=== PATIENT | male | born 1955 | race Caucasian/White ===

== ENCOUNTER → 2023-11-12 13:56 | Outpatient (REF) | payer MEDICARE, OTHER, SELFPAY | LOC: RAD 13:56 | PROVIDERS: ATTENDING PHYSICIAN Internal Medicine Geriatric Medicine | DX: E78.2 Mixed hyperlipidemia (principal); I10 Essential (primary) hypertension; I25.10 Atherosclerotic heart disease of native coronary artery without angina pectoris | CPT/HCPCS: 76770; 93880 ==

== ENCOUNTER → 2023-12-04 13:10 | Outpatient (REF) | payer MEDICARE, OTHER, SELFPAY | LOC: HWRAD 13:10 | PROVIDERS: ATTENDING PHYSICIAN Nurse Practitioner Family | DX: R05.8 Other specified cough (principal) | CPT/HCPCS: 71046 ==

== ENCOUNTER → 2023-12-07 08:07 | Outpatient (REF) | payer MEDICARE, OTHER, SELFPAY | LOC: RAD 08:07 | PROVIDERS: ATTENDING PHYSICIAN Nurse Practitioner Family; FAMILY PHYSICIAN Internal Medicine Geriatric Medicine | DX: R13.10 Dysphagia, unspecified (principal) | CPT/HCPCS: 74230; 92611 ==

== ENCOUNTER → 2024-08-26 12:25 | Outpatient (REF) | payer MEDICARE, OTHER, SELFPAY | LOC: HWRAD 12:25 | PROVIDERS: ATTENDING PHYSICIAN Internal Medicine Geriatric Medicine | DX: M54.2 Cervicalgia (principal) | CPT/HCPCS: 72040 ==

== ENCOUNTER → 2025-07-03 07:58 | Outpatient (REF) | payer MEDICARE, OTHER, SELFPAY | LOC: MRI 3T 07:58 | PROVIDERS: ATTENDING PHYSICIAN Specialist; FAMILY PHYSICIAN Internal Medicine Geriatric Medicine | DX: R97.20 Elevated prostate specific antigen [PSA] (principal) | CPT/HCPCS: 72197; A9575 ==

== ENCOUNTER 2025-07-07 06:26 | Day surgery (SDC) | payer MEDICARE, OTHER, SELFPAY | END 2025-07-07 12:08 | disposition home or self-care (01) | LOC: GI 06:26 | PROVIDERS: ATTENDING PHYSICIAN Internal Medicine Gastroenterology; FAMILY PHYSICIAN Internal Medicine Geriatric Medicine | DX: Z12.11 Encounter for screening for malignant neoplasm of colon (principal); Z80.0 Family history of malignant neoplasm of digestive organs; K64.9 Unspecified hemorrhoids; K57.30 Diverticulosis of large intestine without perforation or abscess without bleeding; R13.10 Dysphagia, unspecified; K22.89 Other specified disease of esophagus; K44.9 Diaphragmatic hernia without obstruction or gangrene; K20.90 Esophagitis, unspecified without bleeding | CPT/HCPCS: 43239; G0121; 88305; 88312 ==

== ENCOUNTER 2025-07-31 06:33 | Day surgery (SDC) | payer MEDICARE, OTHER, SELFPAY ==
[2025-07-31] VITALS (13 sets, daily range): BP systolic 143–173; BP diastolic 92–106; BMI 25.8
[2025-07-31 07:22] LABS: Hematocrit 45.3 % (39.0-52.0); Hemoglobin 15.1 g/dL (13.0-18.0); Mean Corp Hgb Conc. 33.3 g/dL (33.0-37.0); Mean Corpuscular Volume 95.0 fL (80.0-94.0); Platelet Count 145 10^3/uL (130-400); Red Cell Dist. Width 11.8 % (11.5-14.5)
[2025-07-31] MEDS: NSS 266 ML IV (07:30)
[2025-07-31 07:38] LABS: Blood Urea Nitrogen 12 mg/dl (9-20); Calcium 9.8 mg/dl (8.4-10.2); Carbon Dioxide 28 mmol/L (22-30); Chloride 105 mmol/L (98-107); Glucose 85 mg/dl (70-99); Potassium 4.0 mmol/L (3.5-5.1); Sodium 140 mmol/L (135-145); eGFR > 60.00
[2025-07-31] MEDS: LOW STRENGTH ASPIRIN 81 MG PO (07:42)
[2025-07-31] MEDS: NSS 1000 IV (09:14)
--- NOTE | 2025-07-31 09:49 | ITS.CL.CATH ---
Hosiery Repairer - Catheterization
Cardiac Catheterization
Procedure Report:
LEFT HEART CATHETERIZATION
Date of Procedure: July 31, 2025
Referring: Dr. Louise Suarez
PROCEDURES:
1. Left heart catheterization with coronary and single-plane left ventriculography
INDICATION: This is a 70-year-old gentleman with multiple cardiovascular risk factors and remote stenting of the distal RCA to the crux of the vessel back in 2016. He has reported chest pressure with physical and emotional stressors. His
beta-betty has been titrated. He was also started on a long-acting nitrate which did provide some improvement in symptoms. He has noticed some degree of symptoms over the past 6 if not 12 months. He is stress study was notable for heavy
coronary artery calcification without significant coronary ischemia. He is now referred for coronary angiography
ACCESS: Right radial artery, 6 Maltese sheath
HEMODYNAMICS : (mmHg)
AO (s/d): 153/92, 120
LV (s/d): 153/9
LVEDP: 18
CORONARY FINDINGS
DOMINANCE: Right
LEFT MAIN: Normal
LEFT ANTERIOR DESCENDING: The LAD is heavily calcified with diffuse atherosclerosis. There is a 90% stenosis in the mid LAD between the 1st and 2nd diagonal branch and a 70% stenosis beyond the second diagonal branch. The second diagonal branch is
large and has a 60% mid stenosis. The LAD is very tortuous over its course.
CIRCUMFLEX: The circumflex is a small caliber nondominant vessel. OM1 is very small and occluded at its origin with a distal vessel filling via faint left to left collaterals. The mid circumflex beyond this very small OM1 has a 70% calcified
stenosis in the distal vessel bifurcates into 2 very small caliber terminal obtuse marginal branches
RIGHT CORONARY ARTERY: The right coronary artery is heavily calcified with diffuse a proximal 40% stenosis and diffuse eccentric calcific plaque throughout the mid RCA. The distal RCA stent is widely patent. The posterolateral branch has a 40% mid
stenosis and supplies a large vascular territory. The mid PDA has a 30% stenosis and is a moderate caliber vessel
VENTRICULOGRAPHY: Left ventriculography is performed in an GOMEZ projection. The digital single-plane left ventricular ejection fraction is visually estimated at 55% with mild anterolateral hypokinesis
SEDATION: 38 minutes of procedural sedation was utilized. An independent medical director occupational health was present to assist with and help manage the patient's level of consciousness and physiologic status.
RADIATION SUMMARY: Fluoro Time (min): 3.4, Dose (mGy): 376, DAP (Gy.cm2) : 26.1
Closure Device: TR band
CONCLUSIONS
1. Diffuse calcific coronary disease is noted in the LAD with significant atherosclerotic plaque including 90% stenosis beyond the first diagonal branch and 70% stenosis beyond the second diagonal branch. The second diagonal is a large and
supplies a large territory. The diagonal has a 60% mid stenosis. There is diffuse calcific plaque and large dominant RCA in the midportion of the artery and coronary disease involving 2 small terminal obtuse marginal branches.
2. Preserved LV systolic function with mild anterolateral hypokinesis
RECOMMENDATIONS
1. Multivessel coronary disease with heavily calcified coronary arteries as described above. I will refer for CT surgical evaluation
Copy to: Dr. Louise Suarez
[2025-07-31] MEDS: NORVASC 2.5 MG PO (11:38)
== END 2025-07-31 11:55 | disposition home or self-care (01) ==
LOC: CATH 06:33
PROVIDERS: ATTENDING PHYSICIAN Internal Medicine Interventional Cardiology; FAMILY PHYSICIAN Internal Medicine Geriatric Medicine; OTHER PHYSICIAN Internal Medicine Cardiovascular Disease
DX: I25.118 Atherosclerotic heart disease of native coronary artery with other forms of angina pectoris (principal); I25.84 Coronary atherosclerosis due to calcified coronary lesion; E78.2 Mixed hyperlipidemia; Z95.5 Presence of coronary angioplasty implant and graft; I77.9 Disorder of arteries and arterioles, unspecified; Z79.82 Long term (current) use of aspirin; Z79.899 Other long term (current) drug therapy; F41.9 Anxiety disorder, unspecified; G61.81 Chronic inflammatory demyelinating polyneuritis; I11.0 Hypertensive heart disease with heart failure; I50.9 Heart failure, unspecified
CPT/HCPCS: 99152; 99153; 80048; 85027; 93458; C1769; Q9967

== ENCOUNTER → 2025-08-02 14:02 | Outpatient (REF) | payer MEDICARE, OTHER, SELFPAY | LOC: RCS 14:02 | PROVIDERS: ATTENDING PHYSICIAN Thoracic Surgery (Cardiothoracic Vascular Surgery); FAMILY PHYSICIAN Internal Medicine Geriatric Medicine | DX: I25.10 Atherosclerotic heart disease of native coronary artery without angina pectoris (principal) | CPT/HCPCS: 93306 ==

== ENCOUNTER 2025-08-09 05:00 | Inpatient (IN) | payer MEDICARE, OTHER, SELFPAY ==
[2025-08-08 10:03] VITALS: BMI 26.7
[2025-08-08 10:58] LABS: Urine Character Clear (Clear)
[2025-08-08 11:05] LABS: INR 1.09; PT 14.3 Sec (11.4-14.6)
[2025-08-08 11:12] LABS: Hematocrit 44.0 % (39.0-52.0); Hemoglobin 14.7 g/dL (13.0-18.0); Mean Corp Hgb Conc. 33.4 g/dL (33.0-37.0); Mean Corpuscular Volume 93.6 fL (80.0-94.0); Nucleated Red Blood Cells % 0 % (-); Platelet Count 155 10^3/uL (130-400); Red Cell Dist. Width 11.8 % (11.5-14.5)
[2025-08-08 11:19] LABS: ALT (SGPT) 16 U/L (0-50); AST (SGOT) 29 U/L (17-59); Albumin 5.1 g/dl (3.5-5.0); Alkaline Phosphatase 68 U/L (38-126); Blood Urea Nitrogen 11 mg/dl (9-20); Calcium 9.7 mg/dl (8.4-10.2); Carbon Dioxide 29 mmol/L (22-30); Chloride 104 mmol/L (98-107); Estimated Creatinine Clearance 106 ml/min; Glucose 84 mg/dl (70-99); Potassium 4.2 mmol/L (3.5-5.1); Sodium 138 mmol/L (135-145); Total Protein 7.2 g/dl (6.3-8.2); eGFR > 60.00
[2025-08-08 12:10] LABS: Glycohemoglobin (HgbA1c) 5.1 % (4.0-5.9)
--- NOTE | 2025-08-08 14:17 | CM ---
spoke to pt and husb in PAT's, we discussed pre op CABG teaching including sternal and driving restrictions. he is prev indep, lives with his husb in a 3 story home with a first floor set up and no steps to enter. he has the CT Surgery book, soap
and instructions. he is agreeable to a f/u visit from the CT Transitional care nurse after dc. cm role explained and all questions answered. plan is for dc to home when medically stable.
[2025-08-09] VITALS (13 sets, daily range): BP systolic 88–149; BP diastolic 68–97; BMI 24.4
[2025-08-09] MEDS: LOPRESSOR 25 MG PO (05:25)
[2025-08-09] MEDS: MAGNESIUM OXIDE 400 MG PO (05:25)
[2025-08-09] MEDS: PROTONIX 40 MG PO (05:25)
[2025-08-09] MEDS: BACTROBAN 2% OINTMENT 1 APPLIC NASAL ×2 (05:25→21:05)
--- NOTE | 2025-08-09 06:19 | W.CVOR.SURPR ---
CVOR Surgeon Immed Pre Op
-
I have examined this patient prior to performance of the scheduled procedure.
The patient's condition is unchanged from the time of the dictated/written History and
Physical and the patient is able to undergo the scheduled procedure.
[2025-08-09 07:46] LABS: ACT+ - POC 156 Seconds (82-134)
[2025-08-09 08:21] LABS: Urine Character Clear (Clear)
[2025-08-09 08:34] LABS: Urine Red Blood Cell 0-2 /HPF (0-2)
[2025-08-09 09:42] LABS: ACT+ - POC 804 Seconds (82-134)
[2025-08-09 09:54] LABS: B.E. - POC -1.1 mmol/L; Glucose - POC 98 mg/dl (70-99); HCO3 - POC 24 mmol/L (21-28); Hematocrit - POC 39 % PCV (42-52); Hemodilution- POC No; Hemoglobin Calculated - POC 13.2; Ionized Calcium - POC 1.18 mmol/L (1.15-1.33); Lactate - POC 0.86 mmol/L (0.36-0.75); O2 Saturation %Calculated-POC 99.3 % (94-98); PCO2 - POC 43 mmHg (35-48); PO2 - POC 156 mmHg (83-108); POC Comment PRE; Potassium - POC 3.8 mmol/L (3.5-5.1); Sodium - POC 142 mmol/L (136-145); Specimen Type - POC Arterial; pH - POC 7.37 (7.35-7.45)
[2025-08-09 10:20] LABS: B.E. - POC 3.7 mmol/L; Glucose - POC 123 mg/dl (70-99); HCO3 - POC 28 mmol/L (21-28); Hematocrit - POC 38 % PCV (42-52); Hemodilution- POC Yes; Hemoglobin Calculated - POC 12.8; Ionized Calcium - POC 1.00 mmol/L (1.15-1.33); Lactate - POC 0.61 mmol/L (0.36-0.75); O2 Saturation %Calculated-POC 100.0 % (94-98); PCO2 - POC 40 mmHg (35-48); PO2 - POC 434 mmHg (83-108); POC Comment CPB; Potassium - POC 5.0 mmol/L (3.5-5.1); Sodium - POC 141 mmol/L (136-145); Specimen Type - POC Arterial; pH - POC 7.46 (7.35-7.45)
[2025-08-09 10:40] LABS: ACT+ - POC 944 Seconds (82-134)
[2025-08-09 10:47] LABS: B.E. - POC 3.4 mmol/L; Glucose - POC 144 mg/dl (70-99); HCO3 - POC 25 mmol/L (21-28); Hematocrit - POC 38 % PCV (42-52); Hemodilution- POC Yes; Hemoglobin Calculated - POC 13.0; Ionized Calcium - POC 1.04 mmol/L (1.15-1.33); Lactate - POC 1.10 mmol/L (0.36-0.75); O2 Saturation %Calculated-POC 99.7 % (94-98); PCO2 - POC 30 mmHg (35-48); PO2 - POC 165 mmHg (83-108); POC Comment CPB; Potassium - POC 5.0 mmol/L (3.5-5.1); Sodium - POC 140 mmol/L (136-145); Specimen Type - POC Arterial; pH - POC 7.53 (7.35-7.45)
--- NOTE | 2025-08-09 10:52 | CM ---
pt in OR today, cm to follow.
[2025-08-09 10:57] LABS: ACT+ - POC 593 Seconds (82-134)
[2025-08-09 11:10] LABS: ACT+ - POC > 1003 Seconds (82-134)
[2025-08-09 11:18] LABS: B.E. - POC 1.5 mmol/L; Glucose - POC 124 mg/dl (70-99); HCO3 - POC 26 mmol/L (21-28); Hematocrit - POC 38 % PCV (42-52); Hemodilution- POC Yes; Hemoglobin Calculated - POC 12.8; Ionized Calcium - POC 1.13 mmol/L (1.15-1.33); Lactate - POC 1.43 mmol/L (0.36-0.75); O2 Saturation %Calculated-POC 99.8 % (94-98); PCO2 - POC 41 mmHg (35-48); PO2 - POC 236 mmHg (83-108); POC Comment CPB; Potassium - POC 4.2 mmol/L (3.5-5.1); Sodium - POC 144 mmol/L (136-145); Specimen Type - POC Arterial; pH - POC 7.41 (7.35-7.45)
[2025-08-09 11:27] LABS: ACT+ - POC 561 Seconds (82-134)
[2025-08-09 11:49] LABS: B.E. - POC 0.6 mmol/L; Glucose - POC 102 mg/dl (70-99); HCO3 - POC 26 mmol/L (21-28); Hematocrit - POC 37 % PCV (42-52); Hemodilution- POC Yes; Hemoglobin Calculated - POC 12.4; Ionized Calcium - POC 1.09 mmol/L (1.15-1.33); Lactate - POC 2.14 mmol/L (0.36-0.75); O2 Saturation %Calculated-POC 99.9 % (94-98); PCO2 - POC 42 mmHg (35-48); PO2 - POC 255 mmHg (83-108); POC Comment WARM; Potassium - POC 4.0 mmol/L (3.5-5.1); Sodium - POC 142 mmol/L (136-145); Specimen Type - POC Arterial; pH - POC 7.39 (7.35-7.45)
[2025-08-09 11:57] LABS: ACT+ - POC 465 Seconds (82-134)
[2025-08-09 12:20] LABS: B.E. - POC -0.8 mmol/L; Glucose - POC 112 mg/dl (70-99); HCO3 - POC 23 mmol/L (21-28); Hematocrit - POC 37 % PCV (42-52); Hemodilution- POC Yes; Hemoglobin Calculated - POC 12.4; Ionized Calcium - POC 1.07 mmol/L (1.15-1.33); Lactate - POC 2.90 mmol/L (0.36-0.75); O2 Saturation %Calculated-POC 99.8 % (94-98); PCO2 - POC 36 mmHg (35-48); PO2 - POC 239 mmHg (83-108); POC Comment WARM; Potassium - POC 4.0 mmol/L (3.5-5.1); Sodium - POC 145 mmol/L (136-145); Specimen Type - POC Arterial; pH - POC 7.42 (7.35-7.45)
[2025-08-09 12:29] LABS: ACT+ - POC 566 Seconds (82-134)
[2025-08-09 12:57] LABS: B.E. - POC -0.2 mmol/L; Glucose - POC 130 mg/dl (70-99); HCO3 - POC 26 mmol/L (21-28); Hematocrit - POC 36 % PCV (42-52); Hemodilution- POC Yes; Hemoglobin Calculated - POC 12.1; Ionized Calcium - POC 1.10 mmol/L (1.15-1.33); Lactate - POC 2.82 mmol/L (0.36-0.75); O2 Saturation %Calculated-POC 99.7 % (94-98); PCO2 - POC 45 mmHg (35-48); PO2 - POC 205 mmHg (83-108); POC Comment WARM; Potassium - POC 3.7 mmol/L (3.5-5.1); Sodium - POC 147 mmol/L (136-145); Specimen Type - POC Arterial; pH - POC 7.37 (7.35-7.45)
[2025-08-09 13:08] LABS: ACT+ - POC 129 Seconds (82-134)
--- NOTE | 2025-08-09 13:47 | W.IMMPOSTOP ---
Addendum entered and electronically signed by Jose Clarke MD 08/09/25 15:06:
[id number]
Original Note:
Surgical Immed Post Op Note
-
CARDIAC SURGERY OPERATIVE NOTE:
Preoperative Dx:
MVCAD
Postoperative Dx:
Same
Procedures:
1) Median sternotomy
2) Takedown of LEV (narrow pedicle)
3) Endoscopic harvest/prep of RLE GSV
4) CABG x 4 (LEV to LAD, GSV to D2, GSV to R PLB, GSV to R PDA)
5) ELAA (45mm AtriClip)
Surgeon:
Jose Clarke M.D.
Senior Structural Engineer:
Hemal Shearer P.A.-C.
Anesthesia:
Timi Carvalho M.D. and Annabella Wells, C.R.N.A.
Perfusion:
Marissa Fu C.C.P.; XC: 118min, CPB: 180min
Findings:
LEV was healthy conduit w/ brisk blood flow, ELD 2.25mm
GSV was healthy conduit w/ slightly variable size and wall thickness (3.0-4.5mm)
LAD was visible on the epicardial surface, scattered calcifications, very thin walled. LAD with tear proximal to heel of anastomosis over approximately 3 mm. Not amenable to primary repair. Anastomosis taken down, distal LEV re-prepared.
Extended LEV-to-LAD anastomosis performed w/ good flow. Lateral pedicle secured. The LEV to LAD anastomosis initially hemostatic however, with resumption of ejection, there were two areas that requiring repair w/ interrupted 7-0 prolene.
Accomplished successful w/ off-pump stabilizer w/ good hemostatic result. ELD 2.50mm
RPDA was visible on the epicardial surface, scattered calcifications, ELD 2.75mm
RPLB was visible on the epicardial surface, scant scattered calcifications, ELD 2.75mm
D2 was visible on the epicardial surface, scattered calcifciations, ELD 3.00mm
Good flow in all grafts on transit-time U/S flow probe assessment
IRVIN: Normal biventricular function, no RWMA, ALEYDA confirmed excluded, no sig VHD
Implants:
Atriclip 45mm - LOT [id number]
CT x 4 (B/L pleural, inferior mediastinal, superior mediastinal)
Sternal wires x 7
Sternal 'X' plate w/ 8 - 12mm screws
Sternal 'Square' plate w/ 4 - 8mm screws
Complications:
No significant complications; LEV to LAD anastomosis had to be repeated 2' to minor LAD linear tear
Transfusions:
None
Condition:
70 sinus (0.4/0.3), 106/66, CVP 10, 99%
GTTS: precedex 0.5, levophed 4, insulin 1
Stable/guarded to CVICU
[2025-08-09 14:05] LABS: B.E. - POC -0.6 mmol/L; Glucose - POC 136 mg/dl (70-99); HCO3 - POC 25 mmol/L (21-28); Hematocrit - POC 34 % PCV (42-52); Hemodilution- POC Yes; Hemoglobin Calculated - POC 11.6; Ionized Calcium - POC 1.16 mmol/L (1.15-1.33); Lactate - POC 2.05 mmol/L (0.36-0.75); O2 Saturation %Calculated-POC 99.6 % (94-98); PCO2 - POC 43 mmHg (35-48); PO2 - POC 192 mmHg (83-108); POC Comment POST; Potassium - POC 3.3 mmol/L (3.5-5.1); Sodium - POC 145 mmol/L (136-145); Specimen Type - POC Arterial; pH - POC 7.37 (7.35-7.45)
--- NOTE | 2025-08-09 14:12 | CON.INTV ---
Addendum entered and electronically signed by Vladimir Pastor MD 08/10/25 13:55:
08/10
Patient transferred to telemetry floor
Disability Specialist service will sign off, please call as needed.
Original Note:
Consultation
Consultation Request
Date/Time Consultation Requested: 08/09/2025
Date/Time Consultation Performed: 08/09/2025
Medical History
-
Chief Complaint: Angina
History of Present Illness:
Patient is a 70-year-old gentleman with known history of angina with activity who had recent coronary angiogram which was suggestive of multi vessel coronary artery disease. Patient was subsequently referred to cardiothoracic surgery and coronary
artery bypass graft was advised. Patient presented to the hospital on 08/09 for elective surgery. Postcoronary artery bypass graft, he was admitted to cardiovascular ICU and window shade ring coverer consultation was requested for further input.
Past medical history. Hypertension, hyperlipidemia, history of coronary artery disease status post PCI, history of angina, chronic inflammatory demyelinating polyneuropathy, erectile dysfunction, osteoarthritis.
Past surgical history. Meniscus surgery, bilateral rotator cuff surgery, right knee arthroscopy.
Family history. Strong family history of coronary artery disease.
Social history. History of smoking in high school. Will get additional information once patient is awake alert and able to communicate.
Allergies / Home Medications
Allergies
Allergy/AdvReac Type Severity Reaction Status Date / Time
cefuroxime (From Ceftin) Allergy Intermediate pt states Verified 08/04/25 13:42
he does
not
remember
this
allergy
atorvastatin (From Lipitor) Allergy myalgias Verified 08/04/25 13:42
rosuvastatin (From Crestor) Allergy myalgias Verified 08/04/25 13:42
Home Medications
�Medication �Instructions �Recorded �Confirmed �Last Taken �Type
aspirin 81 mg chewable tablet 81 mg PO DAILY 03/03/12 08/09/25 08/08/25 History
tadalafil 5 mg tablet (Cialis) 5 mg PO DAILYPRN PRN ED 08/08/16 08/09/25 08/05/25 History
valacyclovir 1 gram tablet 1,000 mg PO [id number] PRN HERPES 08/08/16 08/07/25 1 Month Ago History
(Valtrex) SIMPLEX ~07/01/25
saw palmetto 450 mg capsule 450 mg PO BID 10/07/18 08/09/25 08/01/25 History
amlodipine 2.5 mg tablet 2.5 mg PO DAILY #30 tabs 07/31/25 08/09/25 08/06/25 Rx
evolocumab 140 mg/mL subcutaneous 140 mg SC Q2W 07/31/25 08/09/25 08/08/25 History
pen injector (Sanjana Miller)
ezetimibe 10 mg tablet 10 mg PO HS 07/31/25 08/09/25 08/08/25 History
irbesartan 300 mg tablet 300 mg PO DAILY 07/31/25 08/09/25 08/06/25 History
meloxicam 15 mg tablet 15 mg PO PRN PRN muscle pain 07/31/25 08/09/25 08/04/25 History
metoprolol succinate 50 mg 75 mg PO HS 07/31/25 08/09/25 08/08/25 20:00 History
tablet,extended release 24 hr
nitroglycerin 0.1 mg/hr 1 patch transdermal Q12H 07/31/25 08/07/25 07/30/25 09:00 History
transdermal 24 hour patch
triamcinolone acetonide 32 mg 32 mg intra-articular [id number] 07/31/25 08/09/25 07/19/25 History
intra-articular suspension
ext.releas (Zilretta)
Vyvgart Hytrulo 180 - 2,000 mg SC DIRECTED 08/04/25 08/09/25 08/08/25 History
cholecalciferol (vitamin D3) 50 50 mcg PO DAILY 08/04/25 08/09/25 08/01/25 History
mcg (2,000 unit) tablet (Vitamin
D3)
coenzyme Q10 100 mg capsule 100 mg PO DAILY 08/04/25 08/09/25 08/01/25 History
doxycycline hyclate 200 mg 400 mg PO PRN PRN UTI 08/04/25 08/09/25 08/08/25 History
tablet,delayed release
mecobalamin (vitamin B12) 1,000 1,000 mcg PO DAILY 08/04/25 08/09/25 08/01/25 History
mcg chewable tablet
turmeric 400 mg capsule 450 mg PO DAILY 08/04/25 08/09/25 08/01/25 History
wheat dextrin 1 gram tablet 1 g PO PRN PRN GI 08/04/25 08/09/25 08/08/25 History
(Benefiber (wheat dextrin))
cyclosporine 0.05 % eye drops in a 1 drp ophthalmic (eye) BID 08/07/25 08/09/25 08/08/25 History
dropperette (Restasis)
Review of Systems
-
Unable to Obtain full review of systems at this time due to: Patient Intubation
Vitals / Labs / Diagnostic Testing
Vital Signs
BP Pulse Ox
147/97 100
08/09/25 05:13 08/09/25 05:12
Microbiology
08/08/25 10:28 Urine Urine Culture - Final
NO GROWTH
Diagnostic Testing:
Physical Exam
-
HEENT: Normocephalic
Cardiovascular: S1/S2
Respiratory: Clear
GI: Soft and Non Distended
Neurology: Other (Sedated)
Skin: Warm
General: Comfortable
Assessment
-
Patient is a 70-year-old gentleman with new diagnosis of multivessel coronary artery disease, s/p coronary artery bypass graft and left atrial appendage exclusion, POD # 0
Titrate off pressors per protocol, Levophed infusing at 1. MAP of 87, CVP 11.
ECHO reviewed with normal function
Management of chest tubes per primary service, no airleak noted
Intubated/sedated, initiate SAT when able. Currently Precedex infusing at 0.5.
Pain control
RASS goal of 0 to -1
Intubated for procedure, SBT trial when patient able to spontaneously breath
Current vent settings: SIMV, 600/16/40%/5, pressure support of 5
AB.32/49/117.
CXR without pneumothorax
Extubate per protocol
Maintain supplement oxygen as needed
Spirometry unremarkable
Can add nebulizers if needed
Aspiration precautions
Encouraged incentive spirometry, OOB/ambulation/early mobility
Advance diet as tolerated following extubation
GI prophylaxis: Protonix
Monitor critical I/O's
Giraldo/chest tube output
Hb/platelets postoperatively, mild drift
Trend CBC for now
Can transfuse if indicated for Hb <7, plt <50 in surgical patients
DVT prophylaxis including SCDs
Insulin protocol initiated and ongoing
Transition to SQ/off as indicated per team
Other medical diagnoses:
- CIDP (chronic inflammatory demyelinating polyneuropathy)
- Coronary artery disease, history of PCI
- Hypertension, hyperlipidemia
Critical Care time 65 mins -- The patient is admitted for acute critical illness for the treatment of vital organ failure and/or prevention of further life-threatening conditions. Total care includes time spent in review of history, physical exam,
medications, hemodynamic/ventilator parameters, laboratory data, imaging and discussion with house staff, pharmacy, respiratory therapy, oil well logger, and nursing
Data:
Spirometry 07/2025: FEV1 109%, FVC 109%, FEV1/FVC 75
ECHO 07/2025: Normal left ventricular size and systolic function, stage I diastolic
dysfunction, no significant LVH.
Normal right ventricular size and function.
Mild atheroma and calcifications in the aorta. The ascending aorta is mildly ectatic but not aneurysmal.
Mild mitral regurgitation.
Trivial to mild TR.
[facility] 07/2025: 1. Diffuse calcific coronary disease is noted in the LAD with significant atherosclerotic plaque including 90% stenosis beyond the first diagonal branch and 70% stenosis beyond the second diagonal branch. The second diagonal is a
large and supplies a large territory. The diagonal has a 60% mid stenosis. There is diffuse calcific plaque and large dominant RCA in the midportion of the artery and coronary disease involving 2 small terminal obtuse marginal branches.
2. Preserved LV systolic function with mild anterolateral hypokinesis
[2025-08-09 14:31] LABS: Glucose - Point of Care 129 mg/dl (70-99)
--- NOTE | 2025-08-09 14:36 | W.PN.UPDATE ---
Update Note
Progress Note Update
70 year old was electively admitted for CABG due to multivessel CAD
IV fluids: 2000
U.O.:� 500
Blood:� none
Wires:� none
Drips: Levophed @ 4, Precedex @ 0.5, Insulin
�
NEURO: sedated, pupils +2mm B/L
RESP: #8OT @22cm> 600/60%/12/5. Lungs clear B/L. 2 mediastinal (10cc on arrival) and R/L pleural (35cc on arrival) chest tubes to -20cm suction. Sanguineous drainage
CV: RRR +S1, S2, no S3, no�rub, no murmur. Dermabond to median sternotomy. RIJ w/Slik
ABD: round, soft, no BS
EXT: no edema, +2/4 DP pulses B/L, no femoral bruit, RLE MARE wrap intact; left radial A-line intact
: Giraldo with clear yellow urine
�
A/P: POD #0 s/p CABG x 4 (LEV to LAD, GSV to D2, GSV to R PLB, GSV to R PDA), ELAA (45mm AtriClip)
IRVIN: EF�
- wean and extubate
# CAD
- will require ASA, Plavix, beta-betty
- statin allergy/contraindicated>resume Repatha/Zetia
�
# acute surgical blood loss anemia-expected
- trend CBC
�
# Chronic demyelinating polyneuropathy
�- resume Vyvgart
[2025-08-09 14:40] LABS: B.E. -1.4 mmol/L; HCO3 25.2 mmol/L (21-28); O2 Saturation % 99.4 % (94-98); PCO2 49 mmHg (35-48); PO2 117 mmHg (83-108); Potassium 3.9 mMOL/L (3.5-5.1); Sodium 139 mMOL/L (136-145)
[2025-08-09 14:51] LABS: INR 1.45; PT 17.3 Sec (11.4-14.6)
[2025-08-09 14:52] LABS: APTT 28.8 Sec (23.4-35.0)
[2025-08-09 14:56] LABS: Hematocrit 38.2 % (39.0-52.0); Hemoglobin 12.7 g/dL (13.0-18.0); Platelet Count 126 10^3/uL (130-400)
--- NOTE | 2025-08-09 15:00 | PTCARENOTE ---
Patient received from CVOR at 1425; Sedated and intubated; NSR on monitor HR 70s; VSS; DP and radial pulses present; Lungs diminished at bases; ETT size 8 positioned and secured at 22 cm @ the lip; Ventilator settings SIMV 12/600/5/FiO2 40%; CTx4
to -20 cm wall suction draining bloody drainage - no air leak, tidaling, or crepitus noted; Hypoactive BS; Giraldo catheter in place draining clear, yellow urine; Sternal incision glued,approximated, and EQUIPMENT OILER - CDI, right groin puncture glued,
approximated, and CDI, RLE incision wrapped in MARE wrap - CDI; L radial A-line in place, RIJ Cordis w/ SLIC. - all lines zeroed and leveled; PIVx1; Levo/insulin/precedex infusing - see nursing flowsheets for further details; see nursing
documentation for further details.
[2025-08-09 15:04] LABS: Blood Urea Nitrogen 13 mg/dl (9-20); Estimated Creatinine Clearance > 125 ml/min; Glucose 122 mg/dl (70-99); Magnesium 2.6 mg/dl (1.6-2.3)
[2025-08-09] MEDS: ANCEF 10 IV ×2 (15:07)
[2025-08-09] MEDS: NEURONTIN PO ×2 (15:08→15:29)
[2025-08-09] MEDS: TYLENOL PO ×2 (15:08→22:17)
[2025-08-09] MEDS: NSS 500 IV (15:08)
[2025-08-09] MEDS: KCL 50 IV ×2 (15:09→16:15)
[2025-08-09 15:17] LABS: Glucose - Point of Care 125 mg/dl (70-99)
[2025-08-09] MEDS: PACERONE PO (15:30)
[2025-08-09] MEDS: CALCIUM GLUCONATE 100 IV (15:40)
--- NOTE | 2025-08-09 15:46 | W.PN.CARDCBS ---
Addendum entered and electronically signed by Sameer Patel DO 08/09/25 17:05:
I saw and examined the patient.
The Bung Driver's note was reviewed and I agree with the note.
Comment:
Plan:
Cont post op care
Remains sinus rhythm
Wean vent per protocol
Discussed with nursing.
Original Note:
Today's Communication / Plan
-
Continue postop care
in sinus rhythm
Will follow
Impression / Plan
-
Primary Therapeutic Recreation Leader: Dr. Louise Suarez
Assessment:
CAD
s/p RCA PCI 2015
MV CAD by cath 07/31/25
s/p CABG x4 LEV to LAD, GSV to D2, GSV to R PLB, GSV to R PDA, ELAA 08/09/25
HLD/elevated LP(a) with statin intolerance, on repatha, zetia
HTN
CIDP
ECHO 08/02/25: EF 60%, no regional wall motion abnormalities noted, no significant changes compared to prior from 2020
Plan:
-s/p CABG x4 LEV to LAD, GSV to D2, GSV to R PLB, GSV to R PDA, ELAA 08/09/25
-intubated, sedated
-on levo@1, insulin @2.6, wean as able
-in SR on review of tele. EKG 08/09 sinus rhythm
-was on toprol 75mg HS, irbesartan 300mg daily, norvasc 2.5mg daily prior to admission
-continue post op care
-d/w CT surgery, nursing
Progress Note - Therapeutic Recreation Leader
Subjective
Date of Service: August 09, 2025
Intubated, sedated
Objective
Labs:
08/09/25 14:30
Labs
Hgb 12.7 g/dL (13.0-18.0) L 08/09/25 14:30
Hct 38.2 % (39.0-52.0) L 08/09/25 14:30
Plt Count 126 10^3/uL (130-400) L 08/09/25 14:30
PT 17.3 Sec (11.4-14.6) H 08/09/25 14:30
INR 1.45 08/09/25 14:30
APTT 28.8 Sec (23.4-35.0) 08/09/25 14:30
Sodium 138 mmol/L (135-145) 08/08/25 10:14
Potassium 4.2 mmol/L (3.5-5.1) 08/08/25 10:14
BUN 13 mg/dl (9-20) 08/09/25 14:30
Creatinine 0.6 mg/dL (0.7-1.3) L 08/09/25 14:30
Glucose 122 mg/dl (70-99) H 08/09/25 14:30
Vital Signs and I&O:
Vital Signs
Temp Pulse Resp BP Pulse Ox
97.5 F 74 13 97
08/09/25 15:00 08/09/25 15:00 08/09/25 15:00 08/09/25 15:00 08/09/25 15:18
Vital Signs
Temp Pulse Resp BP Pulse Ox
97.5 F 74 13 68 97
08/09/25 15:00 08/09/25 15:00 08/09/25 15:00 08/09/25 15:00 08/09/25 15:18
Intake & Output
08/07/25 08/08/25 08/09/25 08/10/25
07:59 07:59 07:59 07:59
Intake Total 48.4 / 48.4
Output Total 205 / 205
Balance -156.6 / -156.6
Physical Exam
Physical Exam
GEN: No distress, intubated, sedated
HEENT: supple, mmm
LUNGS: CTA B/L, no wheezes
CV: Reg, S1/S2, no murmur
ABD: soft, BS+, NT/ND
EXT: No cyanosis, clubbing, edema
NEURO: Intubated, sedated
SKIN: Warm, pink, dry. No rash. Sternotomy dressing clean, dry, intact. CTs in place
[2025-08-09 16:01] LABS: Glucose - Point of Care 112 mg/dl (70-99)
[2025-08-09] MEDS: OFIRMEV 100 IV (16:54)
[2025-08-09 17:00] LABS: Glucose - Point of Care 100 mg/dl (70-99)
[2025-08-09 17:37] LABS: B.E. - POC 0.1 mmol/L; Blood Urea Nitrogen - POC 12 mg/dl (3-120); Chloride - POC 110 mmol/L (96-111); Creatinine - POC 0.69 mg/dl (0.3-1.0); Glucose - POC 109 mg/dl (70-99); HCO3 - POC 26 mmol/L (21-28); Hematocrit - POC 40 % PCV (42-52); Hemodilution- POC No; Hemoglobin Calculated - POC 13.5; Ionized Calcium - POC 1.28 mmol/L (1.15-1.33); Lactate - POC 1.50 mmol/L (0.36-0.75); O2 Saturation %Calculated-POC 97.9 % (94-98); PCO2 - POC 46 mmHg (35-48); PO2 - POC 107 mmHg (83-108); Potassium - POC 4.6 mmol/L (3.5-5.1); Sodium - POC 145 mmol/L (136-145); Specimen Type - POC Arterial; pH - POC 7.36 (7.35-7.45)
--- NOTE | 2025-08-09 17:54 | RESPNOTE ---
patient extubated at 1740 without incident. 99% on 6L.
[2025-08-09 18:14] LABS: Glucose - Point of Care 54 mg/dl (70-99)
[2025-08-09 18:14] LABS: Glucose - Point of Care 96 mg/dl (70-99)
[2025-08-09] MEDS: DILAUDID 0.25 MG IV (18:27)
[2025-08-09 18:32] LABS: Hematocrit 37.7 % (39.0-52.0); Hemoglobin 12.9 g/dL (13.0-18.0); Platelet Count 125 10^3/uL (130-400)
--- NOTE | 2025-08-09 18:43 | PTCARENOTE ---
pt extubated @1740 to 6L NC w/o incident. pt able to state name and and able to follow all commands. IS 500.
--- NOTE | 2025-08-09 19:00 | PTCARENOTE ---
assumed care of patient @ 1900. received pt laying in bed -
Neuro- Aox3, no deficits. Drowsy but responds to verbal commands easily. EDUARDO ALEJANDRO. C/o pain in sternum,, see mar for pain med details
CV- NSR on tele HR 70s. BP goal systolic 90-130, currently elevated past 130, will give pain meds and reassess. Good pulses throughout, no edema noted.
Lungs - Clear throughout , diminished on 4L satting [address] x4 to wall suction no air leak, tidaling or crepitus noted.
GI- BS hypoactive. tolerating ice chips.
- Giraldo present draining good amounts of clear yellow urine
Skin- Sternal aquacel with small amount of marked drainage, R groin puncture and R leg harvest site closed with glue intact underneath matilda wrap.
Lines- R IJ cordis with SLIC present, L a line and R wrist piv all patent. central lines zeroed, flushed.
Meds- Received on insulin per protocol
Pt resting with call foster within reach .
[2025-08-09 19:03] LABS: Glucose - Point of Care 102 mg/dl (70-99)
[2025-08-09] MEDS: ANCEF 5 IV (19:29)
[2025-08-09] MEDS: DILAUDID 0.5 MG IV (19:30)
[2025-08-09] MEDS: LOW STRENGTH ASPIRIN 81 MG PO (19:30)
--- NOTE | 2025-08-09 20:29 | PTCARENOTE ---
BP remains elevated >130 after pain medicine, pt resting comfortably, Cardene started at 2.5
[2025-08-09 20:31] LABS: B.E. 3.3 mmol/L; HCO3 27.8 mmol/L (21-28); O2 Saturation % 99.1 % (94-98); PCO2 41 mmHg (35-48); PO2 120 mmHg (83-108); Potassium 4.4 mMOL/L (3.5-5.1)
[2025-08-09 20:35] LABS: O2 Therapy 6L
[2025-08-09 21:01] LABS: Glucose - Point of Care 111 mg/dl (70-99)
[2025-08-09] MEDS: SENOKOT PO (21:05)
[2025-08-09] MEDS: PACERONE 200 MG PO (22:14)
[2025-08-09] MEDS: ROXICODONE 5 MG PO (22:14)
[2025-08-09] MEDS: ZETIA 10 MG PO (22:14)
[2025-08-09] MEDS: NEURONTIN 100 MG PO (22:15)
[2025-08-09 23:03] LABS: Glucose - Point of Care 104 mg/dl (70-99)
[2025-08-10] VITALS (22 sets, daily range): BP systolic 91–125; BP diastolic 62–78; PULSE 73; O2SAT 94–96; BMI 24.7
--- NOTE | 2025-08-10 | PTCARENOTE ---
pt tolerating sips and chips well, pain medicine given see mar, IS 500 , resting with call foster within reach , no other change in assessment
[2025-08-10] MEDS: DILAUDID 0.5 MG IV (00:26)
[2025-08-10 01:10] LABS: Glucose - Point of Care 119 mg/dl (70-99)
[2025-08-10 03:57] LABS: Blood Urea Nitrogen 16 mg/dl (9-20); Calcium 8.5 mg/dl (8.4-10.2); Carbon Dioxide 24 mmol/L (22-30); Chloride 109 mmol/L (98-107); Estimated Creatinine Clearance > 125 ml/min; Glucose 93 mg/dl (70-99); Magnesium 2.3 mg/dl (1.6-2.3); Potassium 4.5 mmol/L (3.5-5.1); Sodium 139 mmol/L (135-145); eGFR > 60.00
--- NOTE | 2025-08-10 04:00 | PTCARENOTE ---
labs drawn and sent , ekg with diffuse ST elevations, toradol ordered for pain. no other change in assessment .
[2025-08-10 04:03] LABS: Glucose - Point of Care 87 mg/dl (70-99)
[2025-08-10] MEDS: TORADOL 15 MG IV ×3 (04:54→17:46)
[2025-08-10] MEDS: ANCEF 5 IV ×2 (04:56→11:12)
[2025-08-10 05:01] LABS: Hematocrit 37.1 % (39.0-52.0); Hemoglobin 12.0 g/dL (13.0-18.0); Mean Corp Hgb Conc. 32.3 g/dL (33.0-37.0); Mean Corpuscular Volume 96.9 fL (80.0-94.0); Platelet Count 124 10^3/uL (130-400); Red Cell Dist. Width 11.9 % (11.5-14.5)
[2025-08-10 06:17] LABS: Glucose - Point of Care 120 mg/dl (70-99)
--- NOTE | 2025-08-10 06:49 | PTCARENOTE ---
ÁLVARO and marck d/cd per order, A line kept, pt stood to scale and to chair with steady gait. BP stable. cardene off. now resting in chair with call foster within reach
--- NOTE | 2025-08-10 06:51 | W.PN.CT ---
Today's Communication / Plan
-
-pod #1
-no significant issues overnight. Had brief SVT overnight (a-tach), asymptomatic
-mvO2 74.1. Drips: insulin only. Cardene is now off
-CT outputs: 2 meds 115/170 (intermittent +1 air leak noted); 2 pleur 205/385 (no air leak) in 12/24 hrs
-deline
-d/c insulin
-d/c Giraldo
-uptitrate BB as tolerated d/t SVT (at home takes Toprol 75 qd)
-suspect pericarditis on ecg, + rub - ordered Toradol x3 doses (Cr 0.6)
-current meds (ASA, Plavix, Zetia, Lopressor, Amio, Feosol, Protonix). Intolerance to statins - on Zetia and Repatha preop
-encourage IS, OOB
Assessment / Plan
-
- MVCAD- s/p CABG x 4 (LEV to LAD, GSV to D2, GSV to R PLB, GSV to R PDA); ELAA (45mm AtriClip) by Dr. Clarke on 08/09/25, pod #1
- IRVIN: Normal biventricular function, no RWMA, ALEYDA confirmed excluded, no sig VHD
- HTN/HLD
- Chronic inflammatory demyelinating polyneuropathy
- CAD, s/p ROBERT 2015
- b/l RTC repair
- Former smoker
- Intolerance of statins d/p myalgia - on Repatha and Zetia preop
- Acute postop blood loss anemia- stable, no bleeding
- Acute postop thrombocytopenia
- Acute postop atelectasis
- Acute postop hypovolemia with subsequent hypervolemia
- Suspected acute postop pericarditis on ECG/ + rub
Discussed patient care with: Nursing and Care Team
Subjective
-
Date of Service: August 09, 2025
Objective Data
-
Lab Results
08/09/25 18:14
08/09/25 14:30
PT 17.3 Sec (11.4-14.6) H 08/09/25 14:30
INR 1.45 08/09/25 14:30
APTT 28.8 Sec (23.4-35.0) 08/09/25 14:30
Vital Signs
Vital Signs
Temp Pulse Resp BP Pulse Ox
99 F 70 14 101/71 98
08/09/25 23:00 08/09/25 23:00 08/09/25 23:00 08/09/25 23:00 08/09/25 23:00
CT Intake/Output/Weight
08/09/25 08/09/25 08/10/25
06:59 18:59 06:59
Intake Total 414.3 / 629.3 215.0 / 629.3
Output Total 685 / 1150 465 / 1150
Balance -270.7 / -520.7 -250.0 / -520.7
SaO2: 98
Physical Exam
-
General: Awake and AOx3
Cardiovascular: Regular rate & rhythm, No Murmurs and Rub
Respiratory: Decreased Breath Sounds
Sternum: Stable
Incision: Clean, Dry and Intact
Extremities: No Edema (2+ DPs b/l)
Abdomen: soft, nontender, nondistended, + decreased bowel sounds
Data Reviewed
-
Lab Results: Results Reviewed
Medications: Active Meds Reviewed
Chest X-Ray: Report Reviewed and Image Reviewed
ECG: Report Reviewed and Image Reviewed
--- NOTE | 2025-08-10 07:00 | PTCARENOTE ---
pt received from previous RN at change of shift. Pt OOB in chair resting comfortably. AAOX3. reports mild incisional chest pain- 4/10. NSR on telemetry heart rate in 80s. pulses palpable. no edema. left radial arterial line intact, leveled and
zeroed with appropriate waveform. pt on 2L nasal cannula, sat 97%. lung sounds diminished in bases. CT x4 to -20 suction. 2 mediastinal, R/L pleurals. no air leaks or crepitus at this time. IS 1500. pt denies nausea, tolerating clear liquids.
insulin gtt infusing per protocol. marck dceclaudia this AM at 0600 pt denies urge to void at this time. surgical sites CDI. pt updated on plan of care. See worklist for full nursing assessment and interventions.
--- NOTE | 2025-08-10 07:38 | W.PN.ANS.POP ---
Anesthesia Post Operative
- Anesthesia Post Op Note
Vital Signs Stable-See Nursing Note: Yes
Airway Patent: Yes
Adequate Pain Control: Yes
Change in Mental Status: No
Current Postoperative Nausea & Vomiting: No
Anesthesia Complications: No
General Anesthetic Recall: No
Unplanned Admission: No
Post Op Hydration Adequate: Yes
- -
Pt awake and alert, OOB to chair with no anesthesia r/t complaints. VSS, no n/v.
[2025-08-10] MEDS: TYLENOL 975 MG PO ×3 (08:05→21:26)
[2025-08-10] MEDS: PROTONIX 40 MG PO (08:05)
[2025-08-10] MEDS: LOW STRENGTH ASPIRIN 81 MG PO (08:05)
[2025-08-10] MEDS: FEOSOL 325 MG PO (08:05)
[2025-08-10] MEDS: NEURONTIN 100 MG PO ×3 (08:06→21:26)
[2025-08-10] MEDS: PACERONE 200 MG PO ×3 (08:06→22:48)
[2025-08-10] MEDS: PLAVIX 75 MG PO (08:06)
[2025-08-10] MEDS: SENOKOT 8.6 MG PO ×2 (08:06→20:48)
[2025-08-10] MEDS: MAGNESIUM OXIDE 400 MG PO ×2 (08:06→20:48)
[2025-08-10] MEDS: ROXICODONE 5 MG PO ×2 (08:06→16:01)
[2025-08-10] MEDS: VITAMIN C 500 MG PO (08:06)
[2025-08-10] MEDS: LIDOCAINE 4% PATCH 1 PATCH TOPICAL (08:07)
[2025-08-10] MEDS: LOPRESSOR 12.5 MG PO ×2 (08:07→20:48)
[2025-08-10] MEDS: BACTROBAN 2% OINTMENT 1 APPLIC NASAL ×2 (08:08→20:48)
[2025-08-10 08:22] LABS: Glucose - Point of Care 87 mg/dl (70-99)
[2025-08-10 10:00] LABS: Glucose - Point of Care 112 mg/dl (70-99)
--- NOTE | 2025-08-10 11:57 | PTCARENOTE ---
vitals stable. Pt OOB in chair resting comfortably. NSR on telemetry heart rate in 80s. pt tolerating clear liquids. insulin gtt per protocol. no changes in assessment noted.
[2025-08-10 12:02] LABS: Glucose - Point of Care 99 mg/dl (70-99)
[2025-08-10] MEDS: NSS IV (12:42)
[2025-08-10 14:09] LABS: Glucose - Point of Care 98 mg/dl (70-99)
--- NOTE | 2025-08-10 14:21 | PTCARENOTE ---
pt ambulated in hallway without difficulty. pt has not voided post acharya removal, pt denies urge to void. bladder scanned for 241 ml. no further changes in assessment noted
[2025-08-10] MEDS: LASIX 20 MG IV (14:59)
--- NOTE | 2025-08-10 15:02 | W.PN.CARDCBS ---
Addendum entered and electronically signed by Sameer Patel, 08/10/25 15:47:
I saw and examined the patient.
The Supervising Producer's note was reviewed and I agree with the note.
Comment:
Plan:
Continue postoperative care
Continue beta-betty and titrate as needed for SVT
Blood pressure stable off pressors
Patient remains asymptomatic and is very happy with care.
Discussed with nursing.
Original Note:
Today's Communication / Plan
-
continue post op care
follow EKG
increase BB as BP tolerates
Impression / Plan
-
Primary Active Directory Engineer: Dr. Louise Suarez
Assessment:
CAD
s/p RCA PCI 2015
MV CAD by cath 07/31/25
s/p CABG x4 LEV to LAD, GSV to D2, GSV to R PLB, GSV to R PDA, ELAA 08/09/25
HLD/elevated LP(a) with statin intolerance, on repatha, zetia
HTN
CIDP
ECHO 08/02/25: EF 60%, no regional wall motion abnormalities noted, no significant changes compared to prior from 2020
Plan:
-s/p CABG x4 LEV to LAD, GSV to D2, GSV to R PLB, GSV to R PDA, ELAA 08/09/25
-doing well
-reports he ambulated in hallway
-off pressors
-in SR with brief episode of SVT vs atach overnight, increase BB as BP tolerates as was on toprol 75mg daily prior to admission
-EKG with evidence of pericarditis. without significant pain reported
-continue post op care
-d/w nursing. d/w patient and at bedside
Progress Note - Active Directory Engineer
Subjective
Date of Service: August 10, 2025
denies significant pain or SOB. reports was ambulatory in hallway without issue
Objective
Labs:
08/10/25 03:06
08/10/25 03:06
Labs
Hgb 12.0 g/dL (13.0-18.0) L 08/10/25 03:06
Hct 37.1 % (39.0-52.0) L 08/10/25 03:06
Plt Count 124 10^3/uL (130-400) L 08/10/25 03:06
PT 17.3 Sec (11.4-14.6) H 08/09/25 14:30
INR 1.45 08/09/25 14:30
APTT 28.8 Sec (23.4-35.0) 08/09/25 14:30
Sodium 139 mmol/L (135-145) 08/10/25 03:06
Potassium 4.5 mmol/L (3.5-5.1) 08/10/25 03:06
BUN 16 mg/dl (9-20) 08/10/25 03:06
Creatinine 0.6 mg/dL (0.7-1.3) L 08/10/25 03:06
Glucose 93 mg/dl (70-99) 08/10/25 03:06
Vital Signs and I&O:
Vital Signs
Temp Pulse Resp BP Pulse Ox
98.1 F 81 16 125/76 95
08/10/25 11:00 08/10/25 14:15 08/10/25 14:00 08/10/25 14:06 08/10/25 14:15
Vital Signs
Temp Pulse Resp BP Pulse Ox
98.1 F 81 16 125/76 95
08/10/25 11:00 08/10/25 14:15 08/10/25 14:00 08/10/25 14:06 08/10/25 14:15
Intake & Output
08/08/25 08/09/25 08/10/25 08/11/25
07:59 07:59 07:59 07:59
Intake Total 1032.3 / 1532.7 588.5 / 588.5
Output Total 1775 / 1855 235 / 235
Balance -742.7 / -322.3 353.5 / 353.5
Physical Exam
Physical Exam
GEN: No distress, awake, alert, oriented x3. sitting in chair
HEENT: supple, anicteric, mmm, eomi
LUNGS: Few crackles B/L, no wheezes
CV: Reg, S1/S2, no murmur
ABD: soft, BS+, NT/ND
EXT: No cyanosis, clubbing. trace edema of B/L LE
NEURO: Gross non-focal
SKIN: Warm, pink, dry. No rash. Sternotomy dressing c/d/i. CTs in place
--- NOTE | 2025-08-10 16:00 | PTCARENOTE ---
pt OOB in chair, vitals stable. 95% on room air. SR on telemetry heart rate in 80s. 1 assist/standby to stand. pt denies urge to void. bladder scanned for 380 ml. PA aware. no further changes in assessment noted
--- NOTE | 2025-08-10 20:00 | PTCARENOTE ---
Assumed care of the patient at 1900. Pt OOB in chair, AOx3. SR on CM heart rate in 80s, no edema, palpable pulses. Lungs dim on RA, no cough, CTx4 to -20 cm wall suction, no air leak, tidaling, or crepitus noted, IS to 1500. Abd SNT, no nausea,
tolerating PO, poor appetite. Voided on the toilet with encouragement - pt states he has no urge to void. PVR 32, urine clear yellow. All surgical sites stable and intact, old drainage on MS Suha. ROCHELLE Iniguez, PIV x1. See nursing worklist for
additional intervention details.
[2025-08-10] MEDS: REMOVE LIDOCAINE PATCH 1 PATCH REMOVE (20:52)
[2025-08-10] MEDS: ZETIA 10 MG PO (21:27)
[2025-08-11] VITALS (16 sets, daily range): BP systolic 82–119; BP diastolic 57–91; PULSE 89; O2SAT 92–95; BMI 24.9
--- NOTE | 2025-08-11 | PTCARENOTE ---
No acute issues, patient sleeping between care; call foster within reach, assessment of needs ongoing.
[2025-08-11] MEDS: ROXICODONE 5 MG PO ×2 (02:12→08:33)
--- NOTE | 2025-08-11 04:45 | PTCARENOTE ---
Oxycodone and flexeril for pain, see MAR. Patient sleeping between care, able to ambulate to the toilet with assistance and void 400 mLs of concentrated urine. Pt states he does not have an urge to urinate at any time since the acharya catheter. PVR 5
mLs. Patient BIB and resting at this time, call foster within reach.
[2025-08-11 04:50] LABS: Blood Urea Nitrogen 29 mg/dl (9-20); Calcium 8.5 mg/dl (8.4-10.2); Carbon Dioxide 27 mmol/L (22-30); Chloride 102 mmol/L (98-107); Estimated Creatinine Clearance 98 ml/min; Glucose 102 mg/dl (70-99); Magnesium 2.5 mg/dl (1.6-2.3); Potassium 4.3 mmol/L (3.5-5.1); Sodium 134 mmol/L (135-145); eGFR > 60.00
[2025-08-11] MEDS: FLEXERIL 5 MG PO (05:02)
[2025-08-11] MEDS: TYLENOL 975 MG PO ×3 (05:02→20:41)
[2025-08-11 05:35] LABS: Hematocrit 30.4 % (39.0-52.0); Hemoglobin 10.1 g/dL (13.0-18.0); Mean Corp Hgb Conc. 33.2 g/dL (33.0-37.0); Mean Corpuscular Volume 95.0 fL (80.0-94.0); Platelet Count 100 10^3/uL (130-400); Red Cell Dist. Width 12.0 % (11.5-14.5)
--- NOTE | 2025-08-11 07:02 | W.PN.CT ---
Today's Communication / Plan
-
-pod #2
-no issues overnight
-CT outputs: 2 meds 75/285; 2 pleur 55/170 in 12/24 hrs
-consider diuresis
-follow platelets - 100K today
-encourage IS, OOB
Assessment / Plan
-
- MVCAD- s/p CABG x 4 (LEV to LAD, GSV to D2, GSV to R PLB, GSV to R PDA); ELAA (45mm AtriClip) by Dr. Clarke on 08/09/25, pod #2
- IRVIN: Normal biventricular function, no RWMA, ALEYDA confirmed excluded, no sig VHD
- HTN/HLD
- Chronic inflammatory demyelinating polyneuropathy
- CAD, s/p ROBERT 2015
- b/l RTC repair
- Former smoker
- Intolerance of statins d/p myalgia - on Repatha and Zetia preop
- Acute postop blood loss anemia- stable, no bleeding
- Acute postop thrombocytopenia
- Acute postop atelectasis
- Acute postop hypovolemia with subsequent hypervolemia
- Suspected acute postop pericarditis on ECG/ + rub
Discussed patient care with: Nursing and Care Team
Subjective
-
Date of Service: August 11, 2025
Objective Data
-
Lab Results
08/11/25 04:09
08/11/25 04:09
PT 17.3 Sec (11.4-14.6) H 08/09/25 14:30
INR 1.45 08/09/25 14:30
APTT 28.8 Sec (23.4-35.0) 08/09/25 14:30
Vital Signs
Vital Signs
Temp Pulse Resp BP Pulse Ox
98 F 74 16 113/79 97
08/11/25 04:04 08/11/25 06:00 08/11/25 04:03 08/11/25 04:49 08/11/25 06:00
CT Intake/Output/Weight
08/10/25 08/11/25 08/11/25
18:59 06:59 18:59
Intake Total 660.8 / 1270.8 610 / 1270.8
Output Total 325 / 855 530 / 855
Balance 335.8 / 415.8 80 / 415.8
SaO2: 97
--- NOTE | 2025-08-11 08:00 | PTCARENOTE ---
Received pt from pot maker RN; pt AAOX3 and resting comfortably in chair; NSR on monitor and VSS: + rub; RIJ Cordis and PIV x1 patent; Lungs diminished; IS to 1500; CT x4 to -20 wall suction no air leak and no crepitus noted; hypoactive bowel
sounds; pt voiding yellow urine; palpable pulses throughout; no edema noted; all surgical sites C/D/I; see nursing documentation for further details.
[2025-08-11] MEDS: VITAMIN C 500 MG PO (08:33)
[2025-08-11] MEDS: LOW STRENGTH ASPIRIN 81 MG PO (08:33)
[2025-08-11] MEDS: PACERONE 200 MG PO ×3 (08:33→20:41)
[2025-08-11] MEDS: PROTONIX 40 MG PO (08:33)
[2025-08-11] MEDS: FEOSOL 325 MG PO (08:33)
[2025-08-11] MEDS: PLAVIX 75 MG PO (08:33)
[2025-08-11] MEDS: SENOKOT 8.6 MG PO ×2 (08:33→20:40)
[2025-08-11] MEDS: BACTROBAN 2% OINTMENT 1 APPLIC NASAL ×2 (08:34→20:41)
[2025-08-11] MEDS: LASIX 40 MG IV (08:34)
[2025-08-11] MEDS: MAGNESIUM OXIDE 400 MG PO ×2 (08:34→20:41)
[2025-08-11] MEDS: NEURONTIN PO (08:34)
[2025-08-11] MEDS: LIDOCAINE 4% PATCH TOPICAL (08:34)
[2025-08-11] MEDS: LOPRESSOR 12.5 MG PO (09:44)
[2025-08-11] MEDS: NEURONTIN 100 MG PO ×3 (09:45→20:40)
[2025-08-11] MEDS: TORADOL 15 MG IV (10:30)
[2025-08-11] MEDS: LIDOCAINE 4% PATCH 1 PATCH TOPICAL (10:34)
--- NOTE | 2025-08-11 10:51 | PTCARENOTE ---
Chest tubes X4 removed per CTNP order.
--- NOTE | 2025-08-11 12:59 | PTCARENOTE ---
NSR on monitor and SBP 80s, pt asymptomatic; updated CTNP and Calcium ordered; assessment unchanged; family at bedside.
[2025-08-11] MEDS: CALCIUM GLUCONATE 100 IV (13:03)
--- NOTE | 2025-08-11 15:36 | W.PN.CARDCBS ---
Addendum entered and electronically signed by Dale Carrillo MD 08/11/25 17:26:
I saw and examined the patient.
The Shelver's note was reviewed and I agree with the note.
Comment:
GEN: No distress, awake, Ox3
HEENT: supple, anicteric, mmm
LUNGS: CTA, no wheezes/rales
CV: Reg, S1/S2, no murmur
ABD: soft, BS+, NT/ND
EXT: No edema
NEURO: Gross non-focal
SKIN: sternotomy
Plan:
Overall doing well remains in sinus rhythm. EKG with pericarditis.
Continue metoprolol and amiodarone.
Continue aspirin and Plavix.
Hg at 10.1. Creat 0.8
Original Note:
Today's Communication / Plan
-
Doing well
Continue postop care
In sinus rhythm
Impression / Plan
-
Primary Client Relationship Executive: Dr. Louise Suarez
Assessment:
CAD
s/p RCA PCI 2015
MV CAD by cath 07/31/25
s/p CABG x4 LEV to LAD, GSV to D2, GSV to R PLB, GSV to R PDA, ELAA 08/09/25
HLD/elevated LP(a) with statin intolerance, on repatha, zetia
HTN
CIDP
ECHO 08/02/25: EF 60%, no regional wall motion abnormalities noted, no significant changes compared to prior from 2020
Plan:
-s/p CABG x4 LEV to LAD, GSV to D2, GSV to R PLB, GSV to R PDA, ELAA 08/09/25
-continues to do well post op
-chest tubes removed with significant improvement in breathing
-BPs low but stable, given calcium, follow
-in SR on review of tele. continue lopressor, amiodarone as able
-EKG 08/10 with evidence of pericarditis. without significant pain reported
-on asa, plavix. hgb 10.1. plts 100K, follow
-continue post op care, OOB/IS
-Interestingly, with medication changes compared to outpatient setting, he reports arthritis in his knees is presently much improved. Unclear etiology for change in symptoms, however will monitor in outpatient setting as medications continue to be
adjusted postop
-d/w nursing
Progress Note - Client Relationship Executive
Subjective
Date of Service: August 11, 2025
Overall feeling well. No lightheadedness
Objective
Labs:
08/11/25 04:09
08/11/25 04:09
Labs
Hgb 10.1 g/dL (13.0-18.0) L 08/11/25 04:09
Hct 30.4 % (39.0-52.0) L 08/11/25 04:09
Plt Count 100 10^3/uL (130-400) L 08/11/25 04:09
PT 17.3 Sec (11.4-14.6) H 08/09/25 14:30
INR 1.45 08/09/25 14:30
APTT 28.8 Sec (23.4-35.0) 08/09/25 14:30
Sodium 134 mmol/L (135-145) L 08/11/25 04:09
Potassium 4.3 mmol/L (3.5-5.1) 08/11/25 04:09
BUN 29 mg/dl (9-20) H 08/11/25 04:09
Creatinine 0.8 mg/dL (0.7-1.3) 08/11/25 04:09
Glucose 102 mg/dl (70-99) H 08/11/25 04:09
Vital Signs and I&O:
Vital Signs
Temp Pulse Resp BP Pulse Ox
98.2 F 68 18 82/63 95
08/11/25 12:59 08/11/25 12:45 08/11/25 12:59 08/11/25 12:45 08/11/25 12:59
Vital Signs
Temp Pulse Resp BP Pulse Ox
98.2 F 68 18 82/63 95
08/11/25 12:59 08/11/25 12:45 08/11/25 12:59 08/11/25 12:45 08/11/25 12:59
Intake & Output
08/09/25 08/10/25 08/11/25 08/12/25
07:59 07:59 07:59 07:59
Intake Total 1032.3 / 1532.7 1238.5 / 1238.5
Output Total 1775 / 1855 815 / 815 1000 / 1000
Balance -742.7 / -322.3 423.5 / 423.5 -1000 / -1000
Physical Exam
Physical Exam
GEN: No distress, awake, alert, oriented x3. sitting in chair
HEENT: supple, anicteric, mmm, eomi
LUNGS: CTA B/L, no wheezes
CV: Reg, S1/S2, no murmur
ABD: soft, BS+, NT/ND
EXT: No cyanosis, clubbing. trace edema of B/L LE
NEURO: Gross non-focal
SKIN: Warm, pink, dry. No rash. Sternotomy dressing c/d/i.
--- NOTE | 2025-08-11 16:29 | PTCARENOTE ---
Pt ambulating hallways with RN; NSR on monitor and VSS; pt resting comfortably in chair and assessment unchanged.
[2025-08-11] MEDS: ZETIA 10 MG PO (20:41)
[2025-08-11] MEDS: REMOVE LIDOCAINE PATCH REMOVE (20:41)
[2025-08-11] MEDS: NSS IV (20:42)
[2025-08-11] MEDS: KCL 20 MEQ PO (21:05)
[2025-08-11] MEDS: CALCIUM GLUCONATE 130 MG IV (21:38)
[2025-08-12] VITALS (15 sets, daily range): BP systolic 102–121; BP diastolic 67–85; PULSE 74; O2SAT 93–96; BMI 24.8
--- NOTE | 2025-08-12 01:11 | PTCARENOTE ---
assumed care of patibrittany t at 1030pm,, Patient alert and oriented, follows commands, denies pain at this time, placed on 2 L NC as O2 Saturation was decreasing when he slept. NSR on monitor, vitals stable, afebrile, see workflow for detail assessment
data. lungs clear bilaterally. all surgical site CDI.
[2025-08-12 04:06] LABS: Blood Urea Nitrogen 23 mg/dl (9-20); Calcium 9.3 mg/dl (8.4-10.2); Carbon Dioxide 29 mmol/L (22-30); Chloride 103 mmol/L (98-107); Estimated Creatinine Clearance 113 ml/min; Glucose 104 mg/dl (70-99); Magnesium 2.0 mg/dl (1.6-2.3); Potassium 4.5 mmol/L (3.5-5.1); Sodium 134 mmol/L (135-145); eGFR > 60.00
[2025-08-12 04:14] LABS: Hematocrit 29.2 % (39.0-52.0); Hemoglobin 9.8 g/dL (13.0-18.0); Mean Corp Hgb Conc. 33.6 g/dL (33.0-37.0); Mean Corpuscular Volume 95.4 fL (80.0-94.0); Platelet Count 106 10^3/uL (130-400); Red Cell Dist. Width 11.9 % (11.5-14.5)
[2025-08-12] MEDS: TYLENOL 975 MG PO ×3 (06:07→21:34)
--- NOTE | 2025-08-12 06:49 | W.PN.CT ---
Today's Communication / Plan
-
Plan:
-No major issues overnight. Hemodynamically and neurologically intact
-Off all drips
-BP was soft last night, improving
-Will transition from Lopressor to Toprol XL (was on 75 mg of Toprol @ home, but current bp will not tolerate, will start with 12.5 BID)
-D/C cordis
-Monitor hyponatremia, 134. Fluid restriction, diuresis as BP permits
-Monitor thrombocytopenia, 106K
-Encourage use of IS
-OOB into chair/Ambulate
-Home in 1-2 days
Assessment / Plan
-
- MVCAD- s/p CABG x 4 (LEV to LAD, GSV to D2, GSV to R PLB, GSV to R PDA); ELAA (45mm AtriClip) by Dr. Clarke on 08/09/25, pod #3
- IRVIN: Normal biventricular function, no RWMA, ALEYDA confirmed excluded, no sig VHD
- HTN/HLD
- Chronic inflammatory demyelinating polyneuropathy
- CAD, s/p ROBERT 2015
- b/l RTC repair
- Former smoker
- Intolerance of statins d/p myalgia - on Repatha and Zetia preop
- Acute postop blood loss anemia- stable, no bleeding
- Acute postop thrombocytopenia
- Acute postop atelectasis
- Acute postop hypovolemia with subsequent hypervolemia
- Suspected acute postop pericarditis on ECG/ + rub
Discussed patient care with: Cardiology, Nursing, Respiratory Therapy, Pharmacy and Care Team
Subjective
-
Date of Service: August 12, 2025
Pt c/o mild incisional pain, otherwise feels well
Objective Data
-
Lab Results
08/12/25 03:27
08/12/25 03:27
PT 17.3 Sec (11.4-14.6) H 08/09/25 14:30
INR 1.45 08/09/25 14:30
APTT 28.8 Sec (23.4-35.0) 08/09/25 14:30
Vital Signs
Vital Signs
Temp Pulse Resp BP Pulse Ox
99.5 F 86 18 94/62 98
08/11/25 22:47 08/11/25 22:40 08/11/25 22:47 08/11/25 22:40 08/11/25 22:57
CT Intake/Output/Weight
08/11/25 08/11/25 08/12/25
06:59 18:59 06:59
Intake Total 610 / 1270.8
Output Total 530 / 855 1150 / 1450 300 / 1450
Balance 80 / 415.8 -1150 / -1450 -300 / -1450
SaO2: 98 (RA)
Physical Exam
-
General: Awake, Oriented and AOx3
Cardiovascular: Regular rate & rhythm, No Murmurs and No Gallop
Respiratory: Decreased Breath Sounds (at bases, otherwise clear)
Sternum: Stable
Incision: Clean, Dry, Intact and Dressing Intact
Extremities: Other (+trace edema)
Data Reviewed
-
Lab Results: Results Reviewed
Medications: Active Meds Reviewed
Chest X-Ray: Image Reviewed
ECG: Report Reviewed and Image Reviewed
--- NOTE | 2025-08-12 07:45 | PTCARENOTE ---
Assumed care of patient. Walking rounds completed with previous RN. Pt assessed while he was sitting in the chair. Pt alert and oriented x4. Pt denies pain, shortness of breath, and nausea. CLARK with equal strength throughout. Pt slightly unsteady on
his feet but is standby assist to stand from the chair. NSR on tele with rates in the 70s-80s. BP120/85. Heart tones audible. Bilateral radial and DP pulses palpable. No edema noted. POX 92% on RA, per CT SLASHER TENDER HELPER, place pt on 2L NC, POX 95%. Lungs
diminished in the bases. IS encouraged-1500ml achieved. No cough noted. Abdomen soft, nontender. +BS +BM. Pt reports voiding without issues. Sternal incision covered with Aquacel-CDI. Old chest tube sites approximated with sutures, dressing removed,
MICHEAL. Right groin puncture site approximated, CHIEF PROCUREMENT OFFICER. Right SVG harvest site approximated, CHIEF PROCUREMENT OFFICER. Right IJ cordis intact with NSS KVO. Right hand 20g PIV intact. See MAR for medication administration. See worklist for complete nursing assessment. Plan of
care reviewed and patient in agreement.
[2025-08-12] MEDS: BACTROBAN 2% OINTMENT 1 APPLIC NASAL ×2 (08:16→21:17)
[2025-08-12] MEDS: LOW STRENGTH ASPIRIN 81 MG PO (08:17)
[2025-08-12] MEDS: NEURONTIN 100 MG PO ×3 (08:17→21:34)
[2025-08-12] MEDS: SENOKOT 8.6 MG PO ×2 (08:17→21:17)
[2025-08-12] MEDS: PACERONE 200 MG PO ×3 (08:17→21:34)
[2025-08-12] MEDS: PLAVIX 75 MG PO (08:17)
[2025-08-12] MEDS: FEOSOL 325 MG PO (08:17)
[2025-08-12] MEDS: LIDOCAINE 4% PATCH 1 PATCH TOPICAL (08:17)
[2025-08-12] MEDS: TOPROL XL 12.5 MG PO ×2 (08:17→21:17)
[2025-08-12] MEDS: VITAMIN C 500 MG PO (08:17)
[2025-08-12] MEDS: MAGNESIUM OXIDE 400 MG PO ×2 (08:17→21:17)
[2025-08-12] MEDS: PROTONIX 40 MG PO (08:18)
[2025-08-12] MEDS: NSS 500 IV (09:52)
[2025-08-12] MEDS: LASIX 40 MG PO (09:52)
--- NOTE | 2025-08-12 10:25 | W.PN.CARDCBS ---
Today's Communication / Plan
-
Doing well postop, continue postoperative care. Evaluation for possible small pneumothorax with CT imaging today
Impression / Plan
-
Primary General Office Dispatcher: Dr. Louise Suarez
Assessment:
CAD
s/p RCA PCI 2015
MV CAD by cath 07/31/25
s/p CABG x4 LEV to LAD, GSV to D2, GSV to R PLB, GSV to R PDA, ELAA 08/09/25
HLD/elevated LP(a) with statin intolerance, on repatha, zetia
HTN
CIDP
ECHO 08/02/25: EF 60%, no regional wall motion abnormalities noted, no significant changes compared to prior from 2020
Plan:
-s/p CABG x4 LEV to LAD, GSV to D2, GSV to R PLB, GSV to R PDA, ELAA 08/09/25
-continues to do well post op chest tubes are out, he is not on any drips.
-There is a question of small left pneumothorax and he is planned for CT imaging today
-BPs improved but still somewhat soft. Resuming metoprolol succinate but at a lower dose of 12.5 mg p.o. twice daily
-in SR on review of tele. continue metoprolol, amiodarone as able
-EKG 08/10 with evidence of pericarditis. without significant pain reported
-on asa, plavix. hgb 9.8, plts 106K, follow
-continue post op care, OOB/IS
Progress Note - General Office Dispatcher
Subjective
Date of Service: August 12, 2025
He tells me he feels well overall. No chest pain shortness of breath palpitations or dizziness
Objective
Labs:
08/12/25 03:27
08/12/25 03:27
Labs
Hgb 9.8 g/dL (13.0-18.0) L 08/12/25 03:27
Hct 29.2 % (39.0-52.0) L 08/12/25 03:27
Plt Count 106 10^3/uL (130-400) L 08/12/25 03:27
PT 17.3 Sec (11.4-14.6) H 08/09/25 14:30
INR 1.45 08/09/25 14:30
APTT 28.8 Sec (23.4-35.0) 08/09/25 14:30
Sodium 134 mmol/L (135-145) L 08/12/25 03:27
Potassium 4.5 mmol/L (3.5-5.1) 08/12/25 03:27
BUN 23 mg/dl (9-20) H 08/12/25 03:27
Creatinine 0.7 mg/dL (0.7-1.3) 08/12/25 03:27
Glucose 104 mg/dl (70-99) H 08/12/25 03:27
Vital Signs and I&O:
Vital Signs
Temp Pulse Resp BP Pulse Ox
98.6 F 74 16 120/85 95
08/12/25 07:44 08/12/25 09:00 08/12/25 07:44 08/12/25 07:44 08/12/25 07:45
Vital Signs
Temp Pulse Resp BP Pulse Ox
98.6 F 74 16 120/85 95
08/12/25 07:44 08/12/25 09:00 08/12/25 07:44 08/12/25 07:44 08/12/25 07:45
Intake & Output
08/10/25 08/11/25 08/12/25 08/13/25
06:59 06:59 06:59 06:59
Intake Total 1000.0 / 1032.3 1270.8 / 1270.8 180 / 180 250 / 250
Output Total 1735 / 1775 855 / 855 1950 / 1950
Balance -735.0 / -742.7 415.8 / 415.8 -1770 / -1769 250 / 250
Physical Exam
Physical Exam
GEN: No distress, awake, Ox3
HEENT: supple, anicteric, mmm
LUNGS: CTA, no wheezes/rales
CV: Reg, S1/S2, no murmur
ABD: soft, BS+, NT/ND
EXT: No edema
NEURO: Gross non-focal
SKIN: sternotomy
--- NOTE | 2025-08-12 12:00 | PTCARENOTE ---
Pt returned from CT scan. Ambulating from the stretcher to the bathroom with standby assist. NSR with rates in the 70s. BP 121/82. POX 96% on 2L NC. Surgical sites stable. Pt urinating frequently post lasix administration. Pt's at bedside.
--- NOTE | 2025-08-12 16:43 | PTCARENOTE ---
Pt reassessed. NSR with rates in the 70s-80s. BP 108/74. POX 97% on 2L NC. Surgical sites stable. Pt denies pain & shortness of breath. Ambulating with standby assist in the room and gonzalez. No acute changes from previous assessment.
--- NOTE | 2025-08-12 21:15 | PTCARENOTE ---
Report received from AMOS Mcclendon. Walking rounds done. VS done. Pt assessed. Pt helped to BR to void clear, yellow urine. Pt then walked while on 2L/NC/O2 in gonzalez to entrance of IVU and back. Denies dyspnea, pain ,dizziness, lightheadedness. Sats on
2L/NC are 95-96%. BBS present. Decreased B bases. CDB, IS encouraged. IS peak 1000 mls. Audible heart tones. Pt in SR. Normotensive. Weak pulses to B DPs, Normal Radial pulses. For wound assessments, see flowsheets. Belly soft, nontender.
Normoactive bs. Had BM today on day shift. Denies pain. Ongoing plan of care.
[2025-08-12] MEDS: REMOVE LIDOCAINE PATCH REMOVE (21:17)
[2025-08-12] MEDS: ZETIA 10 MG PO (21:34)
--- NOTE | 2025-08-12 22:30 | PTCARENOTE ---
Pt given CHG bath, face washed, pt brushed teeth. Ed, PA in to see pt on his rounds. Pt going to sleep for evening.Remains in SR. Normotensive. 2L/NC/O2 remains, sats 95-96%. Ongoing plan of care.
--- NOTE | 2025-08-13 02:30 | PTCARENOTE ---
Pt sleeping. On 2L/NC. Remains in SR.
[2025-08-13 03:42] VITALS: BP 91/61
--- NOTE | 2025-08-13 03:45 | PTCARENOTE ---
VS done. Pt sleeping. Remains in SR.
--- NOTE | 2025-08-13 04:14 | W.PN.CT ---
Today's Communication / Plan
-
Plan:
-No major issues overnight. Hemodynamically and neurologically intact
-Off all drips
-BP soft postop, improved. Tolerating 12.5 BID Toprol XL
-Stable small right apical ptx. F/U official report
-D/C cordis
-Hyponatremia has resolved
-Monitor thrombocytopenia, 106-> 126
-Encourage use of IS
-OOB into chair/Ambulate
-Home today with f/u cxr
Assessment / Plan
-
- MVCAD- s/p CABG x 4 (LEV to LAD, GSV to D2, GSV to R PLB, GSV to R PDA); ELAA (45mm AtriClip) by Dr. Clarke on 08/09/25, pod #4
- IRVIN: Normal biventricular function, no RWMA, ALEYDA confirmed excluded, no sig VHD
- HTN/HLD
- Chronic inflammatory demyelinating polyneuropathy
- CAD, s/p ROBERT 2015
- b/l RTC repair
- Former smoker
- Intolerance of statins d/p myalgia - on Repatha and Zetia preop
- Acute postop blood loss anemia- stable, no bleeding
- Acute postop thrombocytopenia
- Acute postop atelectasis
- Acute postop hypovolemia with subsequent hypervolemia
- Suspected acute postop pericarditis on ECG/ + rub
- Acute postop right pneumothorax post chest tube removal
Discussed patient care with: Cardiology, Nursing, Respiratory Therapy, Pharmacy and Care Team
Subjective
-
Date of Service: August 13, 2025
Pt c/o mild incisional pain, otherwise feels well
Objective Data
-
PT 17.3 Sec (11.4-14.6) H 08/09/25 14:30
INR 1.45 08/09/25 14:30
APTT 28.8 Sec (23.4-35.0) 08/09/25 14:30
Vital Signs
Vital Signs
Temp Pulse Resp BP Pulse Ox
98.9 F 71 16 121/79 96
08/12/25 22:03 08/13/25 00:00 08/12/25 22:03 08/12/25 22:03 08/13/25 01:41
CT Intake/Output/Weight
08/12/25 08/12/25 08/13/25
06:59 18:59 06:59
Intake Total 180 / 180 330 / 410 80 / 410
Output Total 800 / 1950 1150 / 1150
Balance -620 / -1770 -820 / -740 80 / -740
SaO2: 96 (2L)
Physical Exam
-
General: Awake, Oriented and AOx3
Cardiovascular: Regular rate & rhythm, No Murmurs and No Gallop
Respiratory: Decreased Breath Sounds (at bases, otherwise clear)
Sternum: Stable
Incision: Clean, Dry, Intact and Dressing Intact
Extremities: Other (+trace edema)
Data Reviewed
-
Lab Results: Results Reviewed
Medications: Active Meds Reviewed
Chest X-Ray: Report Reviewed and Image Reviewed
ECG: Report Reviewed and Image Reviewed
[2025-08-13 05:33] LABS: Hematocrit 30.4 % (39.0-52.0); Hemoglobin 10.1 g/dL (13.0-18.0); Mean Corp Hgb Conc. 33.2 g/dL (33.0-37.0); Mean Corpuscular Volume 94.1 fL (80.0-94.0); Platelet Count 126 10^3/uL (130-400); Red Cell Dist. Width 11.9 % (11.5-14.5)
[2025-08-13 05:48] LABS: Blood Urea Nitrogen 17 mg/dl (9-20); Calcium 8.6 mg/dl (8.4-10.2); Carbon Dioxide 30 mmol/L (22-30); Chloride 102 mmol/L (98-107); Estimated Creatinine Clearance > 125 ml/min; Glucose 98 mg/dl (70-99); HDL Cholesterol 42 mg/dl; LDL Cholesterol, Calculated 18 mg/dl; Magnesium 1.9 mg/dl (1.6-2.3); Potassium 4.1 mmol/L (3.5-5.1); Sodium 137 mmol/L (135-145); Very Low Density Lipoprotein 16 mg/dl (0-30); eGFR > 60.00
[2025-08-13 06:00] VITALS: BMI 24.4
--- NOTE | 2025-08-13 06:45 | PTCARENOTE ---
Labs drawn and sent this am. CXR done. Pt helped to BR to void, brush teeth, washed face. Helped to chair. Meds given. See OCT. Report to AMOS Mcclendon.
[2025-08-13 06:48] VITALS: BP 114/78
[2025-08-13] MEDS: CALCIUM GLUCONATE 130 MG IV (06:54)
[2025-08-13] MEDS: TYLENOL 975 MG PO (06:54)
[2025-08-13 08:39] VITALS: BP 112/83
[2025-08-13 08:40] VITALS: BP 124/74
--- NOTE | 2025-08-13 09:02 | W.DCSUMMARY ---
Discharge Summary
Discharge Data
Date of Admission: 08/09/25
Date of Discharge: 08/13/25
Total time spent discharging patient (in min): 55
-
Pending Results: No
Hospital Course
Primary care physician:
Dr. Taylor
Outpatient flame channeler:
Dr. Brody
Inpatient consultants:
DCA, programs manager
Procedures:
1. CABG x 4 (LEV to LAD, GSV to D2, GSV to R PLB, GSV to R PDA)
Primary Diagnosis:
1. MVCAD
Secondary Diagnoses:
- HTN/HLD
- Chronic inflammatory demyelinating polyneuropathy
- CAD, s/p ROBERT 2015
- b/l RTC repair
- Former smoker
- Intolerance of statins d/p myalgia - on Repatha and Zetia preop
- Acute postop blood loss anemia- stable, no bleeding
- Acute postop thrombocytopenia
- Acute postop atelectasis
- Acute postop hypovolemia with subsequent hypervolemia
- Acute postop right pneumothorax post chest tube removal
HPI:
70 year old was electively admitted for CABG due to multivessel CAD
Hospital course: Patient presented electively on 08/09 for an elective CABG with Dr. Clarke. Postoperatively he returned to the CVICU on Levophed, insulin, and Precedex. Patient was weaned off Levophed and Precedex. He was extubated by 1739. On
08/10 postoperative day 1, patient had brief atrial tach overnight and was started on Cardene infusion for hypertension. Patient was started on beta-blockers and was weaned off Cardene. He was transitioned off his insulin drip and was diuresed
with 20 mg of IV Lasix. On 08/11 postoperative day 2, patient was diuresed with 40 mg of IV Lasix. Chest tubes were removed and pain significantly improved. On 08/12 postoperative day 3 morning x-ray showed a small pneumothorax. He was sent for
a repeat CT of the chest which was stable. He was again diuresed with 40 mg of IV Lasix. On 08/13 postoperative day 4 morning x-ray showed that the pneumothorax was stable. He was started on oral Lasix and was deemed stable for discharge home.
He will remain on Lasix for 1 week and is scheduled for a repeat chest x-ray in 1 week to monitor the pneumothorax.
Home medication changes:
see below
Discharge Plan
-
Patient Disposition: Home (Routine Discharge)
Discharge Diagnosis/Procedures: CABG x 4, left atrial appendage clip (08/09/25)
Condition: Good
Diet: Low Cholesterol, Low Sodium and Restrict fluids to 64 oz
Activity: No strenuous activity
Driving Restrictions: Not until seen by your Dr
Bathing Restrictions: OK to Shower
Blood Work: BMP in 1 week
Others Tests: CXR in 1 week
Other Services: Cardiac Rehab
Specialty Instructions: Weigh Daily- Call MD for wt gain/loss 3 lbs overnight/5 lbs in 1 week
Activity Restrictions/Additional Instructions:
ACTIVITY:
-No strenuous activity: no heavy lifting, pushing, pulling anything over 15 pounds for one month
-continue to use stairs as tolerated
DRIVING RESTRICTIONS:
-No driving for one month or until approved by your surgeon
WOUND CARE:
-Shower daily. Use soap & water.
-No lotions, creams or powders on incision area.
DIET:
-continue a low fat/low cholesterol diet.
-IF you are diabetic, continue carb controlled diet.
CARDIAC REHAB:
-Please make appointment to start in 5-6 weeks with your local hospital program. (See Cardiac Rehabilitation Discharge Booklet).
SPECIALTY INSTRUCTIONS:
-Weigh yourself daily. Call your physician for any weight gain/loss of 3 lbs overnight or 5 lbs in one week.
-REPORT any clicking noise or uneven appearance of your sternum to your surgeon immediately.
-If you smoke, you are instructed to quit. The [place] smoking hotline phone number is [phone]
Referrals:
CT Transitional Care Nurse [Outside]
Referral Note:
The Cardiothoracic Transitional Care Nurse will call you to set up a visit in 1-2 days.
[facility]. Cardiac Rehab [Outside] - 09/14/25 8:30 am
Referral Note: Cardiac Rehab Orientation appointment is on September 14 at 8:30am.
The Cardiac Rehab gym is located on the first floor of the [facility].
Caroline Steele PA-C [Specified Professional Personl, Cardiology] - 09/18/25 9:00 am
Referral Note: Your appt on 09/01 with Ani Alanis was CANCELLED
Edmundo Kang MD [Family Provider, Internal Medicine]
Jose Clarke MD [Active, Cardiac Surgery] - 09/12/25 2:00 pm
Frances Sumner CRNP [Specified Professional Personl, Cardiac Surgery] - in one week
Additional Discharge Medication Instructions: Please note that your blood pressure medications have been either reduced or stopped. As your blood pressure recovers after surgery, they will be slowly increased.
Prescriptions:
New
cyclobenzaprine 10 mg Tablet
5 mg PO Q8HPRN PRN (Reason: muscle spasm) Qty: 30 0RF
acetaminophen 325 mg Tablet
650 mg PO Q4HPRN PRN (Reason: mild pain,headache,temp >101F ) Qty: 0 0RF
clopidogrel 75 mg Tablet
75 mg PO DAILY Qty: 30 0RF
metoprolol succinate 25 mg Tablet Extended Release 24 Hr
12.5 mg PO BID Qty: 30 0RF
furosemide 40 mg Tablet
40 mg PO DAILY Qty: 7 0RF
pantoprazole 40 mg Tablet,Delayed Release (Dr/Ec)
40 mg PO DAILY Qty: 30 0RF
oxycodone 5 mg Tablet
2.5 mg PO Q4HPRN PRN (Reason: moderate to severe pain) Qty: 10 0RF
potassium chloride [Klor-Con 10] 10 mEq tablet extended release
10 meq PO DAILY Qty: 7 0RF
Continued
valacyclovir [Valtrex] 1,000 MG tablet
1,000 mg PO [id number] PRN (Reason: HERPES SIMPLEX)
Zilretta 32 mg Suspension,Extended Rel Recon
32 mg INTRA-ARTICULAR [id number]
Rx Instructions:
SWITCHING WITH MONOVISC
cholecalciferol (vitamin D3) [Vitamin D3] 50 mcg (2,000 unit) Tablet
50 mcg PO DAILY
Benefiber (wheat dextrin) 1 gram Tablet
1 g PO PRN PRN (Reason: CONSTIPATION)
doxycycline hyclate 200 mg Tablet,Delayed Release (Dr/Ec)
400 mg PO PRN PRN (Reason: UTI)
mecobalamin (vitamin B12) 1,000 mcg Tablet,Chewable
1,000 mcg PO DAILY
aspirin 81 MG tablet,chewable
81 mg PO DAILY Qty: 0 0RF
ezetimibe 10 mg Tablet
10 mg PO HS Qty: 0 0RF
cyclosporine [Restasis] 0.05 % Dropperette
1 drp OPHTHALMIC (EYE) BID Qty: 0 0RF
Repatha SureClick 140 mg/mL Pen Injector
140 mg SC Q2W Qty: 0 0RF
Vyvgart Hytrulo
180 - 2,000 mg SC DIRECTED Qty: 0 0RF
Held
coenzyme Q10 100 mg Capsule
100 mg PO DAILY
Hold Instructions: Resume on 08/20/25.
Discontinued
tadalafil [Cialis] 5 MG tablet
5 mg PO DAILYPRN PRN (Reason: ED)
saw palmetto 450 MG capsule
450 mg PO BID
nitroglycerin 0.1 mg/hr Patch 24 Hour
1 patch TRANSDERMAL Q12H
metoprolol succinate 50 mg Tablet Extended Release 24 Hr
75 mg PO HS
Rx Instructions:
1.5TAB
irbesartan 300 mg Tablet
300 mg PO DAILY
meloxicam 15 mg Tablet
15 mg PO PRN PRN (Reason: muscle pain)
turmeric 400 mg Capsule
450 mg PO DAILY
amlodipine 2.5 mg tablet
2.5 mg PO DAILY
Discharge Orders:
Discharge Patient (As Directed); Ordered 08/13/25
Ordered By: Melissa Call
Discharge Date and Time
Print Language: GERMAN
--- NOTE | 2025-08-13 09:30 | PTCARENOTE ---
Resumed care of patient. Walking rounds completed with previous RN. Pt assessed while he was sitting in the chair. Pt alert and oriented x4. Denies pain, shortness of breath, and nausea. CLARK with equal strength throughout. Independently ambulating
in the room and gonzalez. NSR on tele with rates in the 70s while resting. BP 113/72. Heart tones audible. POX 96% on RA. Lungs diminished in the bases. IS encouraged-1500ml achieved, pt using acapella. Occasional nonproductive cough. Abdomen soft,
nontender. +BS tolerating diet. +BM. Pt voiding in the toilet, reports no issues. Sternal incision covered with Aquacel-CDI. Old CT sites covered. Right groin puncture MICHEAL. Right SVG harvest SPECIAL EDUCATION SECRETARY. Right IJ cordis and PIV intact. See MAR for
medication administration. See worklist for complete nursing assessment. Plan of care reviewed and patient in agreement.
[2025-08-13] MEDS: BACTROBAN 2% OINTMENT 1 APPLIC NASAL (09:39)
[2025-08-13] MEDS: PROTONIX 40 MG PO (09:40)
[2025-08-13] MEDS: LOW STRENGTH ASPIRIN 81 MG PO (09:40)
[2025-08-13] MEDS: PACERONE 200 MG PO (09:40)
[2025-08-13] MEDS: FEOSOL 325 MG PO (09:42)
[2025-08-13] MEDS: SENOKOT 8.6 MG PO (09:42)
[2025-08-13] MEDS: LASIX 40 MG PO (09:42)
[2025-08-13] MEDS: PLAVIX 75 MG PO (09:42)
[2025-08-13] MEDS: LIDOCAINE 4% PATCH TOPICAL (09:43)
[2025-08-13] MEDS: MAGNESIUM OXIDE 400 MG PO (09:43)
[2025-08-13] MEDS: VITAMIN C 500 MG PO (09:43)
[2025-08-13] MEDS: NEURONTIN 100 MG PO (09:43)
[2025-08-13] MEDS: TOPROL XL 12.5 MG PO (09:43)
[2025-08-13 09:45] VITALS: BP 113/72
--- NOTE | 2025-08-13 10:00 | PTCARENOTE ---
Pt ambulated in the gonzalez to the stairs, completed, pt tolerated. Assisted back to bed. Right IJ cordis d/c per orders. Hemostasis achieved, pt tolerated.
[2025-08-13 11:00] VITALS: BP 113/72
--- NOTE | 2025-08-13 12:00 | PTCARENOTE ---
Discharge instructions reviewed with patient and spouse. All questions answered. VSS. Pt showered, tolerated. PIV d/c.
--- NOTE | 2025-08-13 12:30 | PTCARENOTE ---
Pt d/c via wheelchair to car.
== END 2025-08-13 13:15 | disposition home or self-care (01) | DRG 236 ==
LOC: CVICU 05:00
PROVIDERS: Anesthesiology; Nurse Practitioner; Physician Assistant Medical; ADMITTING PHYSICIAN Thoracic Surgery (Cardiothoracic Vascular Surgery); CONSULT PHYSICIAN Internal Medicine; FAMILY PHYSICIAN Internal Medicine Geriatric Medicine
PROC: 02L70CK Occlusion of Left Atrial Appendage with Extraluminal Device, Open Approach (ICD-10-PCS; 2025-08-09)
PROC: 021209W Bypass Coronary Artery, Three Arteries from Aorta with Autologous Venous Tissue, Open Approach (ICD-10-PCS; 2025-08-09)
PROC: 02100ZC Bypass Coronary Artery, One Artery from Thoracic Artery, Open Approach (ICD-10-PCS; 2025-08-09)
PROC: 06BP4ZZ Excision of Right Saphenous Vein, Percutaneous Endoscopic Approach (ICD-10-PCS; 2025-08-09)
PROC: B24BZZ4 Ultrasonography of Heart with Aorta, Transesophageal (ICD-10-PCS; 2025-08-09)
PROC: 5A1221Z Performance of Cardiac Output, Continuous (ICD-10-PCS; 2025-08-09)
DX: I25.118 Atherosclerotic heart disease of native coronary artery with other forms of angina pectoris (principal); D62 Acute posthemorrhagic anemia; G61.81 Chronic inflammatory demyelinating polyneuritis; J98.11 Atelectasis; J95.811 Postprocedural pneumothorax; I30.8 Other forms of acute pericarditis; I10 Essential (primary) hypertension; E78.5 Hyperlipidemia, unspecified; D69.59 Other secondary thrombocytopenia; E86.1 Hypovolemia; E87.70 Fluid overload, unspecified; Y83.2 Surgical operation with anastomosis, bypass or graft as the cause of abnormal reaction of the patient, or of later complication, without mention of misadventure at the time of the procedure; I34.0 Nonrheumatic mitral (valve) insufficiency; Z79.82 Long term (current) use of aspirin; Z79.899 Other long term (current) drug therapy; Z82.49 Family history of ischemic heart disease and other diseases of the circulatory system; Z87.891 Personal history of nicotine dependence; Z95.5 Presence of coronary angioplasty implant and graft
CPT/HCPCS: 36415; 71045; 71250; 80048; 80053; 80061; 81003; 81015; 82248; 82330; 82565; 82805; 82810; 82947; 82962; 83036; 83735; 84132; 84302; 84520; 85014; 85018; 85025; 85027; 85049; 85610; 85730; 86850; 86900; 86901; 86920; 87070; 87086; 93005; 93312; 93320; 93325; 94002; 94010; C1713; P9045

== ENCOUNTER → 2025-08-22 11:14 | Outpatient (REF) | payer MEDICARE, OTHER, SELFPAY | LOC: RAD 11:14 | PROVIDERS: ATTENDING PHYSICIAN Thoracic Surgery (Cardiothoracic Vascular Surgery) | DX: J95.811 Postprocedural pneumothorax (principal) | CPT/HCPCS: 71046 ==